=== PATIENT | female | born 2000 | race Caucasian/White ===

== ENCOUNTER 2020-08-06 10:04 | Day surgery (SDC) | payer OTHER ==
[2020-08-06] MEDS ORDERED: Ringers Lactate 1,000 ML IV ONE (10:36)
--- OUTSIDE RECORDS SUMMARY | 2020-08-06 11:14 | XMS REPORT | Summary of Care ---
:2000 Author Organization [facility] - [facility] Address [address] [place] [id number] Care Team Providers Name Role Phone Diana Jordan MD Primary Care Provider Reason for Referral (Routine) Status Reason Specialty Diagnoses / Referred By Referred To Procedures Contact Contact New Request Otolaryngology Diagnoses Nasal septal deviation Yeimi Herbert, Procedures CONSULT/REFERRAL ENT FIRE EQUIPMENT REPAIRER INSPECTOR [address] [place] [phone] MRI/CAT Scan (STAT) Status Reason Specialty Diagnoses / Referred By Referred To Procedures Contact Contact New Request Diagnostic Diagnoses Nasal septal deviation Yeimi Herbert, Radiology Procedures CT MAXILLOFACIAL/MANDIBLE WO CONTRAST FIRE EQUIPMENT REPAIRER INSPECTOR [address] [address] Reason for Visit Reason Comments Seizures 07/26/2020 had seizure which was unwitnessed Encounter Details Date Type Department Care Team Description 07/30/2020 Urgent Care [facility] Family Kaila Herbert, FIRE EQUIPMENT REPAIRER INSPECTOR [address] [phone] Nasal septal deviation (Primary Dx); [facility] Provider, [facility] Fall, subsequent encounter; [address] [place] [phone] Allergies No Known Allergiesdocumented as of this encounter (statuses as of 07/30/2020) Medications Medication Sig Dispensed Refills Start Date End Date Status levETIRAcetam (KEPPRA) Take 1 tablet by 30 tablet 0 10/15/2016 Active 500 mg tablet mouth 2 (two) times daily. lamoTRIgine 100 mg Take 100 mg by 0 05/07/2020 Active tablet mouth 2 (two) times daily. FLUoxetine 10 mg TAKE 1 CAPSULE BY 0 07/18/2020 Active capsule MOUTH IN THE MORNING traZODone 50 mg tablet TAKE ONE HALF 0 06/24/2020 Active TABLET OR 1 TABLET BY MOUTH AT BEDTIME NEEDED FOR SLEEP OLANZapine 10 mg tablet 0 07/27/2020 Active documented as of this encounter (statuses as of 07/30/2020) Active Problems No known active problemsdocumented as of this encounter (statuses as of 07/30/2020) Social History Tobacco Use Types Packs/Day Years Used Date Never Smoker Smokeless Tobacco: Never Used Sex Assigned at Date Recorded Not on file COVID-19 Exposure Response Date Recorded In the last month, have you been in contact with No / Unsure 07/29/2020 10:40 AM BAG LOADER MACHINE OPERATOR someone who was confirmed or suspected to have Coronavirus / COVID-19? documented as of this encounter Last Filed Vital Signs Vital Sign Reading Time Taken Comments Blood Pressure 106/65 07/30/2020 9:53 AM BAG LOADER MACHINE OPERATOR Pulse 73 07/30/2020 9:53 AM BAG LOADER MACHINE OPERATOR Temperature 37.3 C (99.1 F) 07/30/2020 9:53 AM BAG LOADER MACHINE OPERATOR Respiratory Rate - - Oxygen Saturation 98% 07/30/2020 9:53 AM BAG LOADER MACHINE OPERATOR Inhaled Oxygen Concentration - - Weight 70.8 kg (156 lb) 07/30/2020 9:53 AM BAG LOADER MACHINE OPERATOR Height 166 cm (5' 5.35") 07/30/2020 9:53 AM BAG LOADER MACHINE OPERATOR Body Mass Index 25.68 07/30/2020 9:53 AM BAG LOADER MACHINE OPERATOR documented in this encounter Patient Instructions Patient InstructionsYeimi Herbert FNP - 07/30/2020 9:40 AM BAG LOADER MACHINE OPERATOR Patient Education Convulsin recurrente en adultos Hoy tuvo otra convulsin. Olvidarse de chuck alguna dosis del medicamento anticonvulsivo es valente razn frecuente de las convulsiones recurrentes. Sin embargo, en ocasiones, las convulsiones son difciles de controlar incluso aunque tome el medicamento correctamente. En dot clarissa, quizs kemp proveedorde atencin mdica deba aumentarle la dosis que claudia. O mario, puede que necesite agregar otro medicamento o cambiar a otro medicamento. Cuidados en el hogar Siga estos consejos para cuidarse en el hogar. Para esta convulsin: Las convulsiones no pueden predecirse. No realice ninguna actividad que pudiera ponerlo en peligro a usted o a otras personas en clarissa de sufrir otra convulsin. Hasta tanto las convulsiones estn bajo un adecuado control, tome las siguientes precauciones: ? No conduzca, no eddie en motocicleta ni en bicicleta. ? No utilice equipos peligrosos guevara herramientas elctricas. ? Bese en la ducha en lugar de la baera. ? No vaya a nadar, no se suba a escaleras, rboles ni techos. Cunteles a yesica familiares y amigos cercanos sobre kemp convulsin. Enseles lo que deben hacer si vuelve a sucederle. Si le recetaron un medicamento para prevenir las convulsiones, tmelo exactamente guevara le indicaron. Olvidarse de chuck alguna dosis aumentar el riesgo de que tenga otra convulsin. Si se olvida valente dosis, debe ingerirla silverman pronto se d cuenta del olvido. Si es alexus la hora rusty administracin de la siguiente dosis, no ingiera la dosis olvidada. Vuelva a comenzar con la administracin del medicamento a la hora de la siguiente dosis. No tome medicamentos adicionales para compensar la dosis olvidada. Use un brazalete de alerta mdica (Medic-Alert) para que el personal de emergencia sepa sobre kemp afeccin. Mantenga un horario de sueo regular para dormir mario al menos 6 a 8 horas cada noche. [place] es de especial importancia cuando est resfriado o tiene gripe u otro tipo de infeccin. Las bebidas alcohlicas y las drogas recreativas pueden causarle ms convulsiones. Consulte consu mdico si puede consumir alguna bebida alcohlica. En clarissa de valente futura convulsin, si est solo: Si siente que est por tener valente convulsin, acustese en valente cama o en el suelo con la aaliyah apoyada sobre algo blando. [place] evitar que se caiga. Recustese de kemp lado avril, no boca arriba. [place] permitir que los lquidos salgan por la boca y evitar que se ahogue. Asegrese de estar a lejado de cualquier objeto que pudiera provocarle valente lesin mayte la convulsin. Si hay tiempo,pida ayuda. En clarissa de valente futura convulsin, si hay alguien con usted: La persona debe ayudarle a colocarse en valente posicin priest y pedir ayuda. Esta persona no debe intentar colocarle nada en la boca por la fuerza valente vez que la convulsin haya comenzado. Hacerlo podra daarle los dientes o la mandbula. Atencin de seguimiento Paramjit un seguimiento con kemp proveedor de atencin mdica. Lleve un diario de convulsiones para anotar la frecuencia con que suceden. Si es tricia y est comenzando a chuck medicamentos anticonvulsivos, consulte con kemp mdico si necesita usar algn mtodo anticonceptivo adicional. Los medicamentos a nticonvulsivos pueden afectar la eficacia de las pastillas anticonceptivas y podra quedar embarazada. Algunas mujeres que vesna medicamentos anticonvulsivos tambin necesitan determinadas vitaminas.Informe a kemp mdico si est embarazada o planeando quedar embarazada. Evite las bebidas alcohlica s hasta que kemp mdico lo autorice. Cada estado tiene diferentes leyes que indican cundo valente persona con convulsiones tiene autorizacin para conducir. Algunos estados exigen que un trastorno de convulsiones se informe al estado. No le permitirn conducir hasta que las convulsiones estn controladas. Hable con kemp proveedor de atencin mdica para brijesh si esto se aplica a kemp clarissa. Para obtener ms informacin, consulte el sitio web de [employer] en www.epilepsy.com/driving-laws. Cundo debe buscar atencin mdica Llame a kemp proveedor de atencin mdica de inmediatosi sucede cualquiera de las siguientes situaciones: Convulsiones ms frecuentes o que dominguez ms de lo habitual Convulsin que dura ms de 5 minutos No despierta entre valente convulsin y otra Confusin mayte ms de 30 minutos despus de valente convulsin Lesiones causadas mayte valente convulsin Fiebre de ms de 100.4F (38.0C), o segn le hayan indicado Irritabilidad inusual, somnolencia o confusin Dolor o rigidez en el anna Dolor de aaliyah que empeora [phone] [place] [address], [place] [address]. Todos los derechos reservados. Esta informacin no pretende sustituir la atencin mdica profesional. Slo kemp mdico puede diagnosticar y tratar un problema de agusto. Patient Education Anatoma de la nariz: vista exterior Por qu kemp nariz tiene el aspecto que tiene? Qu ocurre dentro de la nariz para que valente persona pueda respirar fcilmente? Aprender sobre la anatoma de la nariz lo puede ayudar a entender mejor las respuestas a estas preguntas. Thomas exterior Valente manera de determinar si valente nariz es adecuada con respecto al milan de la le (estticamente) es dividir la le en 3partes iguales. La nariz debe caber dentro del tercio intermedio de la le.Visualizar la nariz guevara un tringulo lo ayudar a determinar cul es el mejor tamao y forma deesta. Thomas de frente.Imagine un tringulo que empieza en la parte ms renee de la nariz y se extiende hasta las comisuras de los labios. Cabe kemp nariz en makayla tringulo? La nariz en s tambin debe tener la forma de un tringulo. Debe estar proporcionada con la longitud y el ancho de la le. Thomas de perfil.Imagine un tringulo con un lado que va a lo gino del fan de la nariz y otro que se extiende hacia afuera desde la base de la nariz. Cabe kemp nariz en makayla tringulo? La inclinacin del extremo tambin debe estar equilibrada con la frente y la barbilla. Thomas desde abajo.Las fosas nasales y la punta de la nariz tambin deben formar un tringulo. Si se va a medir la nariz, no use valente foto que se haya sacado usted (selfie). La corta distancia entre la le y la cmara distorsiona la imagen. Gran parte de la distorsin ocurre alrededor de la nariz. [id number] The [employer]. Todos los derechos reservados. Esta informacin no pretendesustituir la atencin mdica profesional. Slo kemp mdico puede diagnosticar y tratar un problemade agusto. Patient Education Avoiding Slips, Trips, and Falls for Healthcare Workers Common hazards like water spills and burned-out light bulbs can lead to serious, painful injuriesand could also limit your ability to respond to emergencies. Protect yourself, your coworkers, and your patients by doing what you can to create a hazard-free workplace. Clean up wet surfaces Anytime you see (or cause) a spill, clean it up right away. If you cant, sunni it with a sign or paper towels and report it to the appropriate person for cleanup. Place paper towel and spill pad holders in areas where spills are likely. Wear slip-resistant shoes.Use only non-slip mats. Keep your area clutter-free and well-lit Every piece of equipment left out or file drawer left open is a hazard that can trip you up, particularly when its dark: Clean up clutter, especially in front of doors, in hallways, and on stairs. Organize electric cords to avoid tripping on them. Dont leave wheelchairs, cleaning supplies, handcarts, and other materials lying around. Turn on lights before entering a room or supply closet. Report burned-out light bulbs to maintenance promptly. Close file drawers before you walk away from them. Avoid shortcuts Taking a shortcut to save time can be risky. The more shortcuts you take, the greater your chance for taking a tumble: Find a ladder or a step stool when somethings out of easy reach, instead of using an object not meant for climbing. Never reach for a load higher than your shoulders. Never carry a load that you cant see over. If necessary, make more thanone trip, use supply carts, or ask for assistance. Use only designated walkways. Be sure that stairways have handrails on both sides. Sudden dropoffs or rises in the walkway should be eliminated or clearly marked with yellow warning paint. charming charlie last reviewed this educational content on 11/11/201719996506-5722 The [employer]. All rights reserved. This information is not intended as a substitute for professional medical care. Always follow your healthcare professional's instructions. LOADER MACHINE OPERATOR documented in this encounter Progress Notes Yeimi Herbert FNP - 07/30/2020 9:40 AM CST Cc: Chief Complaint Patient presents with Seizures 07/26/2020 had seizure which was unwitnessed Monik Menon is a 20 year old female. Patient is here with Aunt after a fall during an active seizure activity on Wednesday for which she went to the ER yesterday but left AMA. She is here for continued eval due to possible septal deviation. Fall The accident occurred 3 to 5 days ago. The fall occurred in unknown circumstances. She fell from an unknown height. There was no blood loss. The point of impact was the face. The pain is present in theface. The pain is at a severity of 3/10. The pain is mild. Exacerbated by: seizure activity Pertinent negatives include no abdominal pain, bowel incontinence, fever, headaches, hearing loss, hematuria, loss of consciousness, nausea, numbness, tingling, visual change or vomiting. She has tried NSAID for the symptoms. The treatment provided mild relief. Allergies Monik has No Known Allergies. Medications Outpatient Medications Prior to Visit Medication Sig Dispense Refill FLUoxetine 10 mg capsule TAKE 1 CAPSULE BY MOUTH IN THE MORNING lamoTRIgine 100 mg tablet Take 100 mg by mouth 2 (two) times daily. OLANZapine 10 mg tablet traZODone 50 mg tablet TAKE ONE HALF TABLET OR 1 TABLET BY MOUTH AT BEDTIME NEEDED FOR SLEEP levETIRAcetam (KEPPRA) 500 mg tablet Take 1 tablet by mouth 2 (two) times daily. 30 tablet 0 No facility-administered medications prior to visit. Histories No past medical history on file. No past surgical history on file. Social History Socioeconomic History Marital status: Single Spouse name: Not on file Number of children: Not on file Years of education: Not on file Highest education level: Not on file Occupational History Not on file Social Needs Financial resource strain: Not on file Food insecurity Worry: Not on file Inability: Not on file Transportation needs Medical: Not on file Non-medical: Not on file Tobacco Use Smoking status: Never Smoker Smokeless tobacco: Never Used Substance and Sexual Activity Alcohol use: Not on file Drug use: Not on file Sexual activity: Not on file Lifestyle Physical activity Days per week: Not on file Minutes per session: Not on file Stress: Not on file Relationships Social connections Talks on phone: Not on file Gets together: Not on file Attends restorationism service: Not on file Active member of club or organization: Not on file Attends meetings of clubs or organizations: Not on file Relationship status: Not on file Intimate partner violence Fear of current or ex partner: Not on file Emotionally abused: Not on file Physically abused: Not on file Forced sexual activity: Not on file Other Topics Concern Not on file Social History Narrative Not on file No family history on file. Review of Systems Constitutional: Negative. Negative for fever. Respiratory: Negative. Negative for apnea, cough, choking, chest tightness, shortness of breath andwheezing. Cardiovascular: Negative. Negative for chest pain, palpitations and leg swelling. Gastrointestinal: Negative. Negative for abdominal pain, bowel incontinence, nausea and vomiting. Genitourinary: Negative for hematuria. Neurological: Negative. Negative for tingling, loss of consciousness, numbness and headaches. Endocrine: Endocrine negative Vital Signs BP 106/65 | Pulse 73 | Temp 37.3 C (99.1 F) (Oral) | Ht 5' 5.35" (1.66 m) | Wt 156 lb (70.8 kg) | LMP 07/28/2020 | SpO2 98% | BMI 25.68 kg/m Physical Exam Vitals signs and nursing note reviewed. Constitutional: Appearance: She is well-developed. HENT: Head: Normocephalic. Right Ear: External ear normal. Left Ear: External ear normal. Nose: Septal deviation and nasal tenderness present. Neck: Musculoskeletal: Normal range of motion and neck supple. Cardiovascular: Rate and Rhythm: Normal rate and regular rhythm. Heart sounds: Normal heart sounds. No murmur. No friction rub. No gallop. Pulmonary: Effort: Pulmonary effort is normal. No respiratory distress. Breath sounds: Normal breath sounds. No wheezing or rales. Chest: Chest wall: No tenderness. Abdominal: General: Bowel sounds are normal. There is no distension. Palpations: Abdomen is soft. Tenderness: There is no abdominal tenderness. Skin: General: Skin is warm and dry. Capillary Refill: Capillary refill takes less than 2 seconds. Coloration: Skin is not pale. Findings: No erythema or rash. Neurological: Mental Status: She is alert and oriented to person, place, and time. Psychiatric: Mood and Affect: Mood normal. Assessment/Plan Nasal septal deviation (primary encounter diagnosis) Comment: will get an imaging to determine severity, referral amde to ENT for continued care Plan: CT MAXILLOFACIAL/MANDIBLE WO CONTRAST, CONSULT/REFERRAL ENT Fall, subsequent encounter Comment: safety precautions reviewed especially not locking bed room door as with last episodes of seizure where her bedroom was forced open Plan: Seizures Comment: continue current therapies and care with neurologits Plan: safety precautions reviewed Plan of care, desired health behaviors, goals, and medication discussed with patient. Education resources provided and reviewed with AVS. Patient/guardian/family verbalized understanding & agrees to plan of care. This visit did not involve counseling and coordination that comprised more than 50% of the visit time. If applicable, the [employer] database was accessed to review any controlled substance prescription claims data. The [place] prescription claims data in [employer] was reviewed to assess patient compliance with the medication treatment plan. LOADER MACHINE OPERATOR documented in this encounter Plan of Treatment Name Type Priority Associated Diagnoses Order S chedule CT IMAGING STAT Nasal septal deviation Expec aleksandra: 07/30/2020, MAXILLOFACIAL/MANDIBLE Expir es: 07/30/2021 WO CONTRAST Health Maintenance Due Date Last Done Comments VARICELLA VACCINES (1 of 2 - 2-dose 1999 childhood series) MENINGOCOCCAL B VACCINES (1 of 2 - 2008 Risk Bexsero 2-dose series) HPV VACCINES (1 - 2-dose series) 2009 Depression Screening 2010 CHLAMYDIA SCREENING 2014 DTaP,Tdap,and Td Vaccines (1 - 2017 Tdap) PAP SMEAR 2019 INFLUENZA VACCINE (#1) 2020 MENINGOCOCCAL VACCINE Aged Out No longer eligible based on patient's age to complete this topic PNEUMOCOCCAL 0-64 YEARS COMBINED Aged Out No longer eligible based on SERIES patient's age to complete this topic documented as of this encounter Results Not on filedocumented in this encounter Visit Diagnoses Diagnosis Nasal septal deviation - Primary Deviated nasal septum Fall, subsequent encounter Seizures Other convulsions documented in this encounter Insurance Payer Benefit Plan / Subscriber ID Effective Phone Address T ype Group Dates [facility] [id number] 2020-Pres Medic are Adv HEALTHCARE - HE[place]ICARE (Work) [id number] documented as of this encounter
--- OUTSIDE RECORDS SUMMARY | 2020-08-06 11:14 | XMS REPORT | Summary of Care ---
:2000 Author Organization [facility] - [facility] Address [address] [place] [id number] Care Team Providers Name Role Phone Diana Jordan MD Primary Care Provider Reason for Referral MRI/CAT Scan (STAT) Status Reason Specialty Diagnoses / Referred By Referred To Procedures Contact Contact Closed Diagnostic Diagnoses Nasal septal deviation Godwin Cortes, Radiology Procedures CT MAXILLOFACIAL/MANDIBLE WO CONTRAST RESTORATIVE REHAB AIDE [address] [address] Reason for Visit MRI/CAT Scan (STAT) Status Reason Specialty Diagnoses / Referred By Referred To Procedures Contact Contact Closed Diagnostic Diagnoses Nasal septal deviation Godwin Cortes, Radiology Procedures CT MAXILLOFACIAL/MANDIBLE WO CONTRAST RESTORATIVE REHAB AIDE [address] [address] Encounter Details Date Type Department Care Team Description 07/30/2020 Hospital Encounter [facility] Sam Cortes, RESTORATIVE REHAB AIDE Arrived [facility] [address] Tomography [id number] [address] [facility] [facility] [address] [facility] [place] [phone] Allergies No Known Allergiesdocumented as of this encounter (statuses as of 07/31/2020) Medications Medication Sig Dispensed Refills Start Date [...] as of this encounter (statuses as of 07/31/2020) Active Problems No known active problemsdocumented as of this encounter (statuses as of 07/31/2020) Social History Tobacco Use Types Packs/Day Years Used Date Never Smoker Smokeless Tobacco: Never Used Sex Assigned at Date Recorded Not on file COVID-19 Exposure Response Date Recorded In the last month, have you been in contact with No / Unsure 07/29/2020 10:40 AM SENIOR DIRECTOR someone who was confirmed or suspected to have Coronavirus / COVID-19? documented as of this encounter Last Filed Vital Signs Not on filedocumented in this encounter Plan of Treatment Health Maintenance Due Date Last Done Comments [...] this topic documented as of this encounter Procedures Procedure Name Priority Date/Time Associated Diagnosis Comme nts CT STAT 07/30/2020 3:48 PM Nasal septal Results for this MAXILLOFACIAL/HAYLIE SENIOR DIRECTOR deviation procedur e are in BLE WO CONTRAST the results section. documented in this encounter Results CT MAXILLOFACIAL/MANDIBLE WO CONTRAST (07/30/2020 3:48 PM SENIOR DIRECTOR) Specimen Impressions Performed At PACS/VR/DOSE Bilateral nasal bone fractures as discus sed. Chronic maxillary sinus disease. Narrative Performed At INDICATION: Nasal fx, suspected she is on her period, Aunty declined PACS/VR/DOSE preganacy test ORDERING PROVIDER: GODWIN CORTES TECHNIQUE: CT of the facial bones perf ormed without contrast. CT was performed in accordance with the princip les of ALARA. RL: 6200 FINDINGS: There is a fracture through the right nasal bone with apex medial angulation and 1 mm lateral displ acement of the more anterior fracture fragment. There is a mildly ang ulated left nasal bone fracture. The osseous orbits are intact. The temporomandibular j oints are intact. No additional facial bone fracture is identified. Mucosal thickening involves both maxillary sinuses. No air-fluid lev el is noted within the paranasal sinuses. The mastoid air cells and middl e ears are clear. Procedure Note [facility], Radiant Results Inft User - 2019 4:12 PM SENIOR DIRECTOR INDICATION: Nasal fx, suspected she is on her period, Aunty declined preganacy test ORDERING PROVIDER: GODWIN CORTES TECHNIQUE: CT of the facial bones perfo rmed without contrast. CT was performed in accordance with the princip les of ALARA. RL: 6200 FINDINGS: There is a fracture through t he right nasal bone with apex medial angulation and 1 mm lateral displ acement of the more anterior fracture fragment. There is a mildly ang ulated left nasal bone fracture. The osseous orbits are intact. The tempo romandibular joints are intact. No additional facial bone fracture is ident ified. Mucosal thickening involves both maxillary sinuses. No air-fluid lev el is noted within the paranasal sinuses. The mastoid air cells and middl e ears are clear. IMPRESSION Bilateral nasal bone fractures as discus sed. Chronic maxillary sinus disease. Performing Organization Address City/State/Zipcode Phone Number PACS/VR/DOSE documented in this encounter Visit Diagnoses Diagnosis Nasal septal deviation Deviated nasal septum documented in this encounter Insurance Payer Benefit Plan / Subscriber ID Effective Phone Address T ype Group Dates [facility] [id number] 2020-Pres Medic are Adv HEALTHCARE [place] (Work) [id number] documented as of this encounter
--- OUTSIDE RECORDS SUMMARY | 2020-08-06 11:14 | XMS REPORT | Summary of Care ---
:2000 Author Organization [facility] Address [address] [place] [address] Care Team Providers Name Role Phone Diana Jordan MD Primary Care Provider Reason for Visit Reason Comments Results Encounter Details Date Type Department Care Team Description 07/31/2020 Telephone [facility] Family Medicine Jamee Lobato MD Results - [address] [place] [address] [place] [address] [phone] Allergies No Known Allergiesdocumented as of this [...] with No / Unsure 07/29/2020 10:40 AM PROCESS DEVELOPMENT MANAGER someone who was confirmed or suspected to have Coronavirus / COVID-19? documented as of this encounter Last Filed Vital Signs Not on filedocumented in this encounter Miscellaneous Notes Telephone Encounter - Mari Lee RN - 07/31/2020 2:[address] result show, Bilateral nasal bone fractures, as well as chronic maxillary sinuses - referral made to ENT, please continue care with ENT. ESS DEVELOPMENT MANAGER Telephone Encounter - Cary Andrade - 07/31/2020 2:33 PM CSTPlease review elephone Encounter - Cristina Grace - 07/31/2020 1:32 PM CSTAunt of patient is returing a call regarding the patients CT results and is requesting a call back. documented in this encounter Plan of Treatment Health [...] Results Not on filedocumented in this encounter Insurance Payer Benefit Plan / Subscriber ID Effective Phone Address T ype Group Dates [facility] [id number] 2020-Pres Medic are Adv HEALTHCARE - HEALTHCARE DUAL ent [place] MANA[place] COM[place]TE HMO MEDICARE documented as of this encounter
--- OUTSIDE RECORDS SUMMARY | 2020-08-06 11:14 | XMS REPORT | Summary of Care ---
:2000 Author Organization [facility] Address [address] [place] [address] Care Team Providers Name Role Phone Diana Jordan MD Primary Care Provider Reason for Referral MRI/CAT Scan (STAT) Status Reason Specialty Diagnoses / Referred By Referred To Procedures Contact Contact New Request Diagnostic Diagnoses Blunt trauma of nose, initial encounter Ibjuliana, Radiology Procedures CT MAXILLOFACIAL/MANDIBLE WO CONTRAST [place] F, BELLOWS FILLER [address] [facility] [address] [place] [phone] Reason for Visit Reason Comments Other nose pain Auth/Cert Status Reason Specialty Diagnoses / Referred By Referred To Procedures Contact Contact Emergency Medicine [facility] Em ergency Dept [address] [place] [address] Fax: Encounter Details Date Type Department Care Team Description 07/29/2020 Emergency ADC-Emergency Nikita Romero Blunt tra eugene of nose, Department F, BELLOWS FILLER initial encounter [address] ([address] Dx) [address] [place] [address] [phone] Allergies No Known Allergiesdocumented as of this encounter (statuses as of 07/29/2020) Medications Medication Sig Dispensed Refills Start Date End Date Status levETIRAcetam (KEPPRA) Take 1 tablet by 30 tablet 0 10/15/2016 Active 500 mg tablet mouth 2 (two) times daily. documented as of this encounter (statuses as of 07/29/2020) Active Problems No known active problemsdocumented as of this encounter (statuses as of 07/29/2020) Social History Tobacco Use Types Packs/Day Years Used Date Never Assessed Sex Assigned at Date Recorded Not on file COVID-19 Exposure Response Date Recorded In the last month, have you been in contact with No / Unsure 07/29/2020 10:40 AM INSURANCE MARKETING SPECIALIST someone who was confirmed or suspected to have Coronavirus / COVID-19? documented as of this encounter Last Filed Vital Signs Vital Sign Reading Time Taken Comments Blood Pressure 108/73 07/29/2020 10:41 AM INSURANCE MARKETING SPECIALIST Pulse 76 07/29/2020 10:41 AM INSURANCE MARKETING SPECIALIST Temperature 36.3 C (97.3 F) 07/29/2020 10:41 AM INSURANCE MARKETING SPECIALIST Respiratory Rate 16 07/29/2020 10:41 AM INSURANCE MARKETING SPECIALIST Oxygen Saturation 97% 07/29/2020 10:41 AM INSURANCE MARKETING SPECIALIST Inhaled Oxygen Concentration - - Weight 68 kg (150 lb) 07/29/2020 10:41 AM INSURANCE MARKETING SPECIALIST Height - - Body Mass Index - - documented in this encounter ED Notes Ngoc Spicer RN - 07/29/2020 10:40 AM CSTPatient c/o nose pain after having a seizure 2 days ago. Patient unsure if she hit her nose during seizure. RANCE MARKETING SPECIALIST documented in this encounter Plan of Treatment Name Type Priority Associated Diagnoses Order S chedule CT IMAGING STAT Blunt trauma of nose, ONCE f or 1 Occurrences MAXILLOFACIAL/MANDIBLE initial encounter starting 07/29/2020 WO CONTRAST until 0 POCT TEST LAB SYL Blunt trauma of nose, ONCE for 1 Occurrences initial encounter starting 1 09/28/2019 until 0 Health Maintenance Due Date Last Done Comments [...] Name Priority Date/Time Associated Diagnosis Comme nts NOTICE OF PRIVACY Routine 07/29/2020 10:25 AM INSURANCE MARKETING SPECIALIST PRACTICES CONSENT/REFUSAL FOR Routine 07/29/2020 10:25 AM INSURANCE MARKETING SPECIALIST DIAGNOSIS AND TREATMENT documented in this encounter Results Not on filedocumented in this encounter Visit Diagnoses Diagnosis Blunt trauma of nose, initial encounter - Primary documented in this encounter Insurance Payer Benefit Plan / Subscriber ID Effective Phone Address T e Group Dates [facility] [id number] 2020-Pres Medic are Adv HEALTHCARE - HEALTHC[place]NA[place] COMPLETE O MEDICARE [employer] [place] [id number] 2019-Pres Medicaid HEALTHCARE COMM PLUS ent PLAN - MANAGED MEDICAID (Work) [id number] documented as of this encounter
--- OUTSIDE RECORDS SUMMARY | 2020-08-06 11:14 | XMS REPORT | Continuity of Care Document ---
:1998 Author Organization [facility] Address [address] [place] [address] Care Team Providers Name Role Phone Diana Jordan MD Attending Clinician Piedad MENESES Attending Clinician Provider, Urgent Care Attending Clinician Unavailable Problems This patient has no known problems. Allergies, Adverse Reactions, Alerts This patient has no known allergies or adverse reactions. Medications This patient has no known medications. Procedures This patient has no known procedures. Encounters Start End Encounter Admission Attending Care Care Encounter Source Date/Time Date/Time Type Type Clinicians Facility Department ID 2020-07-31 2020-07-31 Telephone Nikki [facility] [id number] 00:00:00 00:00:00 [facility] [id number] [place] [id number] [facility] [phone] [place] [address] 2020-07-30 2020-07-30 [facility] [id number] 15:30:00 23:59:00 Encounter Yeimi Caicedo [id number] [place] [id number] [place] [id number] 2020-07-30 2020-07-30 Urgent Provider, [facility].[id number] 09:41:56 10:29:53 Care [facility]gent Health [id number] Care [place] [id number] [facility] [phone] [facility] [address] Results This patient has no known results.
--- OUTSIDE RECORDS SUMMARY | 2020-08-06 11:14 | XMS REPORT | Summary of Care ---
:2000 Author Organization [facility] Address [address] [place] [address] Care Team Providers Name Role Phone Diana Jordan MD Primary Care Provider Reason for Referral (Routine) Status Reason Specialty Diagnoses / Referred By Referred To Procedures Contact Contact New Request Otolaryngology Diagnoses Nasal septal deviation Yeimi Herbert, Procedures CONSULT/REFERRAL ENT BUSINESS PROCESS COORDINATOR [address] [place] [phone] MRI/CAT Scan (STAT) Status Reason Specialty Diagnoses / Referred By Referred To Procedures Contact Contact New Request Diagnostic Diagnoses Nasal septal deviation Yeimi Herbert, Radiology Procedures CT MAXILLOFACIAL/MANDIBLE WO CONTRAST BUSINESS PROCESS COORDINATOR [address] [address] Reason for Visit Reason Comments Seizures 07/26/2020 had seizure which was unwitnessed Encounter Details Date Type Department Care Team Description 07/30/2020 Urgent Care [facility] Family Kaila Herbert, BUSINESS PROCESS COORDINATOR [address] [address] Nasal septal deviation (Primary Dx); [facility] Provider, [facility] Fall, subsequent encounter; [address] [place] [phone] Allergies No Known Allergiesdocumented as of this [...] with No / Unsure 07/29/2020 10:40 AM BALL SORTER someone who was confirmed or suspected to have Coronavirus / COVID-19? documented as of this encounter Last Filed Vital Signs Vital Sign Reading Time Taken Comments Blood Pressure 106/65 07/30/2020 9:53 AM BALL SORTER Pulse 73 07/30/2020 9:53 AM BALL SORTER Temperature 37.3 C (99.1 F) 07/30/2020 9:53 AM BALL SORTER Respiratory Rate - - Oxygen Saturation 98% 07/30/2020 9:53 AM BALL SORTER Inhaled Oxygen Concentration - - Weight 70.8 kg (156 lb) 07/30/2020 9:53 AM BALL SORTER Height 166 cm (5' 5.35") 07/30/2020 9:53 AM BALL SORTER Body Mass Index 25.68 07/30/2020 9:53 AM BALL SORTER documented in this encounter Patient Instructions Patient InstructionsYeimi Herbert FNP - 07/30/2020 9:40 AM BALL SORTER Patient Education Convulsin recurrente en adultos Hoy [...] menos 6 a 8 horas cada noche. [place] es de especial importancia cuando est resfriado [...] con la aaliyah apoyada sobre algo blando. [place] evitar que se caiga. Recustese de kemp lado avril, no boca arriba. [place] permitir que los lquidos salgan por la [...] el anna Dolor de aaliyah que empeora [phone] [employer]. [address] [place] [address], [place] [address]. Todos los derechos reservados. Esta informacin no [...] entender mejor las respuestas a estas preguntas. [place] exterior Valente manera de determinar si valente nariz es adecuada con respecto al milan de la le (estticamente) es dividir la le en 3partes iguales. La nariz debe caber dentro del tercio intermedio de la le.Visualizar la nariz guevara un tringulo lo ayudar a determinar cul es el mejor tamao y forma deesta. [place] de frente.Imagine un tringulo que empieza en la parte ms renee de la nariz y se extiende hasta las comisuras de los labios. Cabe kemp nariz en makayla tringulo? La nariz en s tambin debe tener la forma de un tringulo. Debe estar proporcionada con la longitud y el ancho de la le. [place] de perfil.Imagine un tringulo con un lado que va a lo gino del fan de la nariz y otro que se extiende hacia afuera desde la base de la nariz. Cabe kemp nariz en makayla tringulo? La inclinacin del extremo tambin debe estar equilibrada con la frente y la barbilla. [place] desde abajo.Las fosas nasales y la punta de la nariz tambin deben formar un tringulo. Si se va a medir la nariz, no use valente foto que se haya sacado usted (selfie). La corta distancia entre la le y la cmara distorsiona la imagen. Gran parte de la distorsin ocurre alrededor de la nariz. [phone] [employer]. Todos los derechos reservados. Esta informacin no [...] or clearly marked with yellow warning paint. [employer] last reviewed this educational content on 11/11/201719994788-8045 [employer]. All rights reserved. This information is not intended as a substitute for professional medical care. Always follow your healthcare professional's instructions. SORTER documented in this encounter Progress Notes Yeimi [...] file Gets together: Not on file Attends caodaism service: Not on file Active member of [...] and oriented to person, place, and time. Cranial Nerves: Cranial nerves are intact. Sensory: Sensation is intact. Motor: Motor function is intact. Coordination: Coordination is intact. Romberg sign negative. Gait: Gait is intact. Psychiatric: Mood and Affect: Mood normal. Assessment/Plan [...] of the visit time. If applicable, the [place] [employer] database was accessed to review any controlled substance prescription claims data. The [employer] prescription claims data in [employer] was reviewed to assess patient compliance with the medication treatment plan. SORTER documented in this encounter Plan of Treatment Date Type Specialty Care Team Description 07/30/2020 Appointment Radiology Yeimi Herbert FNP [address] [phone] Name Type Priority Associated Diagnoses Order S [...] Effective Phone Address T ype Group Dates [facility] [id number] 2020-Pres Medic are Adv HEALTHCARE - HEALTHCARE [place]NA[place] MEDICARE (Work) [id number] documented as of this encounter
[2020-08-06] MEDS ORDERED: FENTANYL CITR 100 MCG/2 ML ONE (12:20)
[2020-08-06] MEDS ORDERED: MIDAZOLAM HCL 2 MG/2 ML INJ ONE (12:20)
[2020-08-06] MEDS ORDERED: LIDOCAINE 1% W/EPI 1:100,000 MDV 20 ML VIAL ONE (12:20)
[2020-08-06] MEDS ORDERED: propofoL 200 MG/20 ML VIAL IV ONE (12:20)
[2020-08-06] MEDS ORDERED: LIDOCAINE 1% MPF 30 ML VIAL ONE (12:20)
[2020-08-06] MEDS ORDERED: LIDOCAINE 2% MPF 5 ML VIAL ONE (12:21)
[2020-08-06] MEDS ORDERED: ONDANSETRON 4 MG/2 ML VIAL ONE ×2 (12:21→13:23)
[2020-08-06] MEDS ORDERED: Mastisol Adhesive Liq ONE (12:25)
[2020-08-06] MEDS ORDERED: OXYMETAZOLINE HCL 0.05% 15ML NAS ONE (12:26)
[2020-08-06] MEDS ORDERED: dexAMETHasone 4 MG/ML VIAL ONE (12:56)
[2020-08-06] MEDS: HYDROMORPHONE HCL 1 MG/ML INJ ONE ×2 (13:16→13:21)
--- NOTE | 2020-08-06 13:46 | OP ---
Date of Procedure: 08/06/2020 Surgeon: Viky Torre MD Telephonic Rn: None. Preoperative Diagnosis: Nasal fracture status post fall with septal deviation and external nasal def ormity. Postoperative Diagnosis: Nasal fracture status post fall with septal deviation and external nasal de formity. Procedure Performed: Closed nasal reduction with stabilization. Blood Loss: Minimal. Specimens: None. Complications: None. Description Of Procedure: The patient was brought to the operating room. She was placed under gener al anesthesia via LMA. After adequate plane of anesthesia, the nose was inspected. She had mild sarah sara hump with depressed left nasal bone and deviation of the septum. The Mcgovern elevator was placed within the left nasal vault and used to elevate the depressed nasal fragment, resulting in significa nt improvement in the dorsum. The outwardly displaced right nasal bone was carefully but firmly palp ated to reduce the fracture. The Mcgovern elevator was then placed within the right nasal cavity and used to apply light pressure on the septum in order to bring the cartilage back toward midline. Smal l amount of bleeding in the left vault was noted and the area was packed with Afrin-soaked cotton ple dget for several minutes to aid in hemostasis. After removal, the area had very light oozing and cot ton-soaked Ultrafoam dissolvable hemostatic dressing was placed in the left nasal vault. Photo docum entation was obtained of the resulting nasal appearance. Mastisol and Steri-Strips were applied to t he external nose, followed by placement of a thermoplastic splint to provide support and protection t o the nose during the early period. The pledget count was confirmed correct and the patient was retu rned to care of anesthesia for awakening, extubation, and transport to the recovery room, which proce eded without complication. Disposition: This patient will be discharged home later today in the care of her family including he r aunt who holds power of yarn comber and return to Dr. Torre as scheduled. JHON/AMY Voice ID: [id number] Report ID: [id number]
[2020-08-06 13:47] VITALS: TEMP 97.6
[2020-08-06 14:06] VITALS: BP 122/71; O2SAT 100
[2020-08-06] MEDS ORDERED: IBUPROFEN 400 MG TAB ONE (14:44)
== END 2020-08-06 15:00 | disposition home or self-care (01) ==
LOC: OR 10:04
PROVIDERS: ATTEND Otolaryngology
PROC: 0NSBXZZ Reposition Nasal Bone, External Approach (ICD-10-PCS; principal; 2020-08-06 11:00)
DX: S02.2XXD Fracture of nasal bones, subsequent encounter for fracture with routine healing (principal); J34.2 Deviated nasal septum; J32.0 Chronic maxillary sinusitis
CPT/HCPCS: 81025; 21337; J2704; J1100; J2250; J3010; J1170; J7120; J2405 ×2